=== PATIENT | male | born 2000 | race Hispanic/Latino ===

== ENCOUNTER 2022-09-05 23:38 | Emergency (ER) | payer SELFPAY ==
[2022-09-06] MEDS ORDERED: levETIRAcetam 500 MG/5 ML VIAL ONE (00:14)
[2022-09-06 00:33] LABS: ALT (SGPT) 36 U/L (8-55); AST (SGOT) 23 U/L (5-34); Albumin 4.5 g/dL (3.5-5.0); Alkaline Phosphatase 80 U/L (50-130); Anion Gap 18 mmol/L (10-20); BUN (Urea Nitrogen) 18 mg/dL (8.9-20.6); Bilirubin, Total 0.3 mg/dL (0.2-1.2); Calc. Creatinine Clearance 0 mL/min (70-130); Calcium 9.5 mg/dL (7.8-10.44); Carbon Dioxide 23 mmol/L (22-29); Chloride 107 mmol/L (98-107); Estimated GFR 108; Globulin 2.9 g/dL (2.4-3.5); Glucose 109 mg/dL (70-105); Potassium 4.3 mmol/L (3.5-5.1); Protein, Total 7.4 g/dL (6.0-8.3); Sodium 144 mmol/L (136-145)
[2022-09-06] MEDS ORDERED: Lidocaine 1% (PF) 30 ML VIAL ONE (01:44)
[2022-09-06] MEDS ORDERED: Boostrix 0.5 ML (Tdap) VIAL (>/=7 yrs of age) ONE (02:03)
== END 2022-09-06 02:23 | disposition home or self-care (01) ==
LOC: CSHERS 23:38
DX: G40.909 Epilepsy, unspecified, not intractable, without status epilepticus (principal); S20.412A Abrasion of left back wall of thorax, initial encounter; S00.01XA Abrasion of scalp, initial encounter; L03.031 Cellulitis of right toe; Y99.0 Civilian activity done for income or pay; X58.XXXA Exposure to other specified factors, initial encounter
CPT/HCPCS: 10060; 36415; 80053; 90471; 90715; 96365; J1953; J2001

== ENCOUNTER 2023-03-27 17:58 | Emergency (ER) | payer SELFPAY ==
[2023-03-27 18:54] LABS: Bilirubin Neg (Negative); Blood, Urine 10 (Negative); Clarity Clear (Clear); Glucose, Urine (Dipstick) Normal (Negative); Ketone, Urine 5 mg/dL (Negative); Leukocyte Negative (Negative); Nitrite Negative (Negative); Protein, Urine (Dipstick) 30 mg/dl (Neg-Trace); Urobilinogen Normal mg/dL (Less than 2)
[2023-03-27 19:02] LABS: Bacteria/HPF 1+ HPF (None Seen); CAUTI Indications for Culture Alt mental st,lethar; RBC/HPF 0-3 HPF (0-3); Squamous Epithelial 0-3 HPF (0-3); WBC/HPF 0-3 HPF (0-3)
[2023-03-27 19:03] LABS: Sperm/HPF Rare HPF (None Seen); Urine Culture Reflex No No
[2023-03-27 19:19] LABS: #Eosinphils 0.1 10x3/uL (0.0-0.5); #Monocytes 0.8 10x3/uL (0.0-1.1); #Neutrophils 4.5 10x3/uL (1.5-8.4); %Basophils 0.6 % (0.0-2.0); %Eosinophils 1.4 % (0.0-6.0); %Neutrophils 61.6 % (40.0-75.0); Hematocrit 51.2 % (38.8-50.0); Hemoglobin 17.8 g/dL (13.5-17.5); Mean Corpuscular HGB CONC 34.8 g/dL (32.0-36.0); Mean Corpuscular Hemoglobin 28.2 pg (27.0-33.0); Platelet Count 244 10x3/uL (150-450); RBC Distribution Width 12.2 % (11.5-14.5); Red Blood Cell (RBC) Count 6.32 10x6/uL (4.32-5.72); White Blood Cell (WBC) Count 7.3 10x3/uL (3.5-10.5)
[2023-03-27 19:20] LABS: ALT (SGPT) 28 U/L (8-55); AST (SGOT) 26 U/L (5-34); Albumin 4.7 g/dL (3.5-5.0); Alkaline Phosphatase 83 U/L (50-130); Anion Gap 18 mmol/L (10-20); BUN (Urea Nitrogen) 20 mg/dL (8.9-20.6); Bilirubin, Total 0.2 mg/dL (0.2-1.2); Calc. Creatinine Clearance 0 mL/min (70-130); Calcium 9.7 mg/dL (7.8-10.44); Carbon Dioxide 19 mmol/L (22-29); Chloride 105 mmol/L (98-107); Estimated GFR 127; Globulin 2.9 g/dL (2.4-3.5); Glucose 105 mg/dL (70-105); Potassium 4.1 mmol/L (3.5-5.1); Protein, Total 7.6 g/dL (6.0-8.3); Sodium 138 mmol/L (136-145)
[2023-03-27 20:05] LABS: Amphetamine Not Detected (NotDetected); Barbiturates Screen Not Detected (NotDetected); Benzodiazepine Screen Not Detected (NotDetected); Cocaine Metabolite Screen Not Detected (NotDetected); Methadone Not Detected (NotDetected); Methamphetamine Not Detected (NotDetected); Opiate Screen Not Detected (NotDetected); Oxycodone Screen Not Detected (NotDetected); Phencyclidine (PCP) Not Detected (NotDetected); THC/Cannabinoid Screen Not Detected (NotDetected); Tricyclic Screen Not Detected (NotDetected)
[2023-03-27 20:34] LABS: Acetaminophen Less than 10 mcg/mL (10.0-30.0); Alcohol Less than 10.0 mg/dL (Less than 10); Salicylate Less than 8.0 mg/dL (15.0-30.0)
[2023-03-27] MEDS ORDERED: levETIRAcetam 500 MG/5 ML VIAL ONE (21:33)
[2023-03-27] MEDS ORDERED: Divalproex Sodium DR 500 MG TAB ONE (22:27)
[2023-03-27 23:01] LABS: Carbamazepine-Tegretol 3.3 ug/mL (4.0-12.0)
== END 2023-03-27 22:44 | disposition home or self-care (01) ==
LOC: CSHERS 17:58
DX: R56.9 Unspecified convulsions (principal)
CPT/HCPCS: 36415; 80053; 80156; 80306; 80307; 81001; 85025; 93005; J1953